=== PATIENT | female | born 1975 | race Caucasian/White ===

== ENCOUNTER → 2023-10-12 13:07 | Outpatient (REF) | payer OTHER, SELFPAY | LOC: RAD 13:07 | PROVIDERS: ATTENDING PHYSICIAN Nurse Practitioner Adult Health; FAMILY PHYSICIAN Internal Medicine | DX: N84.0 Polyp of corpus uteri (principal) | CPT/HCPCS: 76830; 76856 ==

== ENCOUNTER 2024-11-21 19:17 | Emergency (ER) | payer OTHER, SELFPAY ==
[2024-11-21 19:31] VITALS: BP 163/107
[2024-11-21 20:15] LABS: ALT (SGPT) 50 U/L (0-35); AST (SGOT) 31 U/L (14-36); Albumin 4.9 g/dl (3.5-5.0); Alkaline Phosphatase 54 U/L (38-126); Blood Urea Nitrogen 21 mg/dl (7-17); Calcium 9.1 mg/dl (8.4-10.2); Carbon Dioxide 22 mmol/L (22-30); Chloride 108 mmol/L (98-107); Glucose 127 mg/dl (70-99); Potassium 4.5 mmol/L (3.5-5.1); Sodium 139 mmol/L (135-145); Total Protein 7.7 g/dl (6.3-8.2); eGFR > 60.00
[2024-11-21 20:26] LABS: Troponin I < 0.012 ng/ml
[2024-11-21 21:55] VITALS: BP 167/100
[2024-11-21 22:00] VITALS: BP 158/94
[2024-11-21 22:53] LABS: Hematocrit 34.9 % (37.0-47.0); Hemoglobin 12.3 g/dL (12.0-16.0); Mean Corp Hgb Conc. 35.2 g/dL (33.0-37.0); Mean Corpuscular Volume 87.0 fL (81.0-99.0); Nucleated Red Blood Cells % 0 %; Platelet Count 272 10^3/uL (130-400); Red Cell Dist. Width 11.6 % (11.5-14.5)
[2024-11-21 23:00] VITALS: BP 180/89
[2024-11-21] MEDS: NSS 1000 IV (23:31)
--- NOTE | 2024-11-21 23:39 | ED.GENMED ---
History of Present Illness
General
Chief Complaint: Chest Pain
Source: patient
Exam Limitations: none
Time Seen by Provider: 11/21/24 23:02
Nursing documentation reviewed up to this point in time: agreed with
History of Present Illness
History of Present Illness:
Patient is a 48-year-old female who presents to the emergency department for evaluation of chest pain. Patient states she was at work around 3 PM when she noticed a gradual onset pain in her left lower chest. Pain was constant for a few hours and
associated with lightheadedness and mild shortness of breath. When she arrived home from work that she noticed that she was hypertensive. She contacted her primary care provider who recommended evaluation in the emergency department.
Patient denies any radiation of pain into her back. She denies any clear pleuritic or exertional component to pain. Patient denies any numbness/tingling in extremities or weakness. No visual changes or severe headache.
Patient states she did recently travel back from [place] a few weeks ago however denies any pain or swelling in her lower extremities.
She has no personal or known family history of blood clots or clotting disorders. She does not take any exogenous hormones.
Past History
Past History
ED Past Medical History: HTN and Psychiatric (Anxiety, )
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
Social History
Tobacco: Non-smoker
Alcohol: Occasional
Drug: None
Personal:
Living: with family
Employment: Employed
Family History
Family History: Other (Noncontributory)
Review of Systems
Review of Systems
Allergies reviewed?: Yes
All Other Systems: ROS reviewed and negative except as documented in HPI and ROS
Phy Exam
Physical Exam
Physical Exam:
Vitals: Hypertensive and tachycardic on arrival although somewhat improved by my assessment. Afebrile
General: Patient is well appearing, no acute distress
Skin: Warm and dry, no rashes or lesions
Head: Normocephalic, atraumatic
Eyes: Sclera nonicteric.
Throat: Protecting airway
Neck: Normal ROM, no cervical spine tenderness, no meningismus
Cardiac: Regular rate and rhythm, no murmurs. No reproducible chest wall tenderness. 2+ palpable radial pulses bilaterally
Pulm: Normal respiratory effort, no wheezes, rales, rhonchi heard on exam
Abdomen: No abdominal tenderness.
Extremities: No evidence of cyanosis or edema. 2+ DP pulses bilaterally
Neuro: AAOx3. Grossly intact.
Psychiatric: Normal affect.
Scores
Heart Score for Chest Pain Patients
STEMI patient?: No
History: Slightly or Non-Suspicious
ECG: Normal
Age: >45 - <65 years
Risk Factors: 1 or 2 Risk Factors
Troponin: </= Normal Limit
Heart Score for Chest Pain Patients: 2
Heart Score Risk: 2.5% MACE over next 6 weeks
Course
Orders/Labs/Results
Orders:
Orders
11/21/24 19:18
Electrocardiogram (*1) Urgent
Reason for Study: Chest Pain
EKG- Treatment ONCE
11/21/24 19:45
Comprehensive Metabolic Panel Urgent
NT-proBNP Urgent
Troponin I Urgent
11/21/24 22:46
Complete Blood Count/With Diff Urgent
11/21/24 23:14
0.9% Sodium Chloride 1000 ml [Nss] 1,000 ml IV BOLUS
11/21/24 23:15
Electrocardiogram (*1) Urgent
Reason for Study: Chest Pain
EKG- Treatment ONCE
11/21/24 23:26
COVID-19 Antigen Urgent
Source: Nasal Swab
D-Dimer Urgent
Troponin I Urgent
11/22/24 00:13
CR Chest - 2 Views Urgent
Comment:
Reason For Exam: Left sided chest pain
Abnormal Lab Results
11/21/24 11/21/24
19:45 22:46
RBC 4.01 L 10^6/uL
(4.20-5.40)
Hct 34.9 L %
(37.0-47.0)
Chloride 108 H mmol/L
(98-107)
BUN 21 H mg/dl
(7-17)
Glucose 127 H mg/dl
(70-99)
ALT 50 H U/L
(0-35)
11/21/24 22:46
11/21/24 19:45
Vital Signs
Initial and Last Documented VS:
Initial Vital Signs
Temp Pulse Resp BP Pulse Ox
98.7 F 114 20 163/107 99
11/21/24 19:31 11/21/24 19:31 11/21/24 19:31 11/21/24 19:31 11/21/24 19:31
Last Documented Vital Signs
Temp Pulse Resp BP Pulse Ox
98.7 F 80 12 160/90 97
11/21/24 19:31 11/22/24 00:19 11/22/24 00:19 11/22/24 00:34 11/22/24 00:19
MDM/Problems Addressed
Differential Diagnosis Includes:
Not limited to: Muscle strain, costochondritis, GERD, acute coronary syndrome, pericarditis, pulmonary embolism, etc.
MDM/Problems Addressed:
48-year-old female presenting with left-sided chest discomfort associated with very mild shortness of breath earlier today that has since resolved. Also reports lightheadedness. No clear exertional or pleuritic component to symptoms. Patient
initially tachycardic and hypertensive on arrival although these did improve by my assessment. On exam�patient well-appearing, in no apparent distress. She is afebrile. Heart regular rate and rhythm, lungs clear bilaterally. No reproducible
chest wall tenderness. No lower extremity edema or clinical evidence of DVT. Basic labs sent prior to my evaluation which revealed no clinically significant abnormalities. Initial troponin undetectable. Patient has no pulmonary embolism risk
factors. However�given tachycardia on arrival and very mild shortness of breath�will check D-dimer. Will plan to trend serial troponins, give IV fluids and reassess. Asymptomatic at this time.
Update: D-dimer negative. Repeat troponin undetectable with nonischemic EKG. Chest x-ray reveals no acute abnormality. Vital signs improved while in the emergency department. She remains well and comfortable appearing in no distress. Given
resolution of symptoms, nonischemic EKG, and negative serial troponins x 2�very low acute cardiac process. Feel stable for discharge home with continued monitoring of symptoms and primary care follow-up. Patient comfortable with plan.
Chronic conditions affecting care:
N/A
Acute Exacerbation and/or Progression of Chronic Illness:
N/A
*Radiology
Radiology exam reviewed: preliminary read by ED provider (Chest x-ray reviewed by ne-no acute abnormality)
*Pulse Oximetry
SaO2: 100
Oxygen Mode of Delivery: Room air
Patient hypoxic: no
*EKG
Interpreted by ED Provider?: Yes
EKG Intrepretation Date: 11/22/24
Interpretation: normal
Comparison EKG: no changes
Heart Rate: 87
Rate: normal
Rhythm: sinus
Lewis: normal axis
Interval: normal interval
QRS Pattern: normal QRS
Ischemia: no ischemia
*Compliance Auditor Interpretation
Rate: normal
Interpretation: normal
Heart Rate: 80
Rhythm: sinus
*Critical Care Note
Total Time (30-74mins, 75-104mins- exclusive of procedures): Not Applicable
ED Attending Note
-
Portions of this chart may have been created with voice recognition software.� Occasional wrong word or��sound alike� substitutions may have occurred due to the inherent limitations of voice recognition software.
Discharge Plan
Departure
Patient Disposition: Home (Routine Discharge)
Date of Disposition: 11/22/24
Time of Disposition: 00:51
Patient with high blood pressure during this ER visit?: Yes
Discharge Problem:
Chest pain
Instructions: Chest pain - Discharge instructions, BLOOD PRESSURE
Prescriptions:
No Action
alprazolam 0.5 MG tablet
0.5 mg PO Q6HPRN PRN (Reason: anxiety)
pantoprazole 40 mg tablet,delayed release (DR/EC)
40 mg PO DAILY Qty: 20 0RF
Referrals:
Flako Genao MD [Family Provider, Internal Medicine] - Follow up in 5-7 days
Activity Restrictions/Additional Instructions:
RETURN TO THE EMERGENCY DEPARTMENT WITH ANY CHEST PAIN, SHORTNESS OF BREATH, PERSISTENT LIGHTHEADEDNESS OR DIZZINESS, SEVERE BACK PAIN, HIGH FEVERS OR PRODUCTIVE COUGH, WORSENING OF CURRENT SYMPTOMS, OR ANY OTHER CONCERNS
- As discussed�your workup in the emergency department showed no acute abnormalities.
- Please be sure to stay well-hydrated. Take all medications as prescribed.
- Follow-up with your primary care for further evaluation/management to ensure that your symptoms are improving.
Monitor your symptoms closely and return to the emergency department with any acute worsening/new symptoms or any other concerns
Interventions
Interventions:
*Risk Screen - Suicide Last Done: 11/21/24 19:31
*General Assessment Last Done: 11/21/24 22:27
*Neglect/Abuse Screening Last Done: 11/21/24 19:31
*ED- Fall Risk Assessment Last Done: 11/21/24 22:27
*ED COVID-19 Vaccine History Last Done: 11/21/24 22:27
ED- Cardiac Assessment Last Done: 11/21/24 22:27
Discharge Date and Time
Print Language: HEBREW
[2024-11-21 23:43] LABS: COVID-19 Antigen Negative (Negative)
[2024-11-21 23:45] LABS: D-Dimer 0.29 ug/mlFEU (0.00-0.50)
[2024-11-22] VITALS: BP 159/96
[2024-11-22 00:12] LABS: Troponin I < 0.012 ng/ml
[2024-11-22 00:34] VITALS: BP 160/90
== END 2024-11-22 01:14 | disposition home or self-care (01) ==
LOC: EMR 19:17
PROVIDERS: Emergency Medicine; Physician Assistant; EMERGENCY PHYSICIAN Student in an Organized Health Care Education/Training Program; FAMILY PHYSICIAN Internal Medicine
DX: R07.89 Other chest pain (principal); I10 Essential (primary) hypertension
CPT/HCPCS: 99283; 71046; 80053; 83880; 84484; 85025; 85379; 87811; 93005

== ENCOUNTER 2025-01-17 22:21 | Emergency (ER) | payer OTHER, SELFPAY ==
[2025-01-17 22:24] VITALS: BP 162/104
--- NOTE | 2025-01-18 00:10 | ED.GENMED ---
History of Present Illness
<Arnol Landaverde MD, Resident - Last Filed: 01/18/25 00:44>
General
Chief Complaint: Skin Surface Trauma
Source: patient
Exam Limitations: none
Time Seen by Provider: 01/17/25 23:51
History of Present Illness
History of Present Illness:
Patient is a 49-year-old female who presents to the emergency department with left ankle pain following a left ankle wound after falling off her treadmill a week ago. After the fall she immediately went to urgent care and was given cephalexin.
They recommended that she receive her tetanus shot but she declined at that time. She has been adherent to taking the antibiotics but unfortunately the pain in her left lower leg has gotten worse. The redness is growing around the wound and
patient's pain is now radiating up her leg to below the knee. Currently she cannot put any pressure on the foot without experiencing pain. She has been using her to help her walk.
Past History
<Arnol Landaverde MD, Resident - Last Filed: 01/18/25 00:44>
Past History
ED Past Medical History: HTN and Psychiatric (Anxiety, )
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
Social History
Tobacco: Non-smoker
Alcohol: Occasional
Drug: None
Personal:
Living: with family
Employment: Employed
Family History
Family History: Other (Noncontributory)
Phy Exam
<Arnol Landaverde MD, Resident - Last Filed: 01/18/25 00:44>
General Physical Exam
General Presentation: well appearing and no apparent distress
General age: appears stated age
General Skin: warm and dry
General Habitus: normal
General Mental: alert
General Hydration: appears well hydrated
Cardiovascular Exam
Cardiovascular Exam: regular rate/rhythm, no edema, no gallop, no JVD and no murmur
Pulmonary Exam
Pulmonary Exam: lungs clear, no respiratory distress, no rales, chest non tender, no crackles, no rhonchi, no stridor, no wheezing and no cough
Gastrointestinal Exam
Gastrointestinal Exam: normal bowel sounds, non tender, soft, no organomegaly, no pulsatile mass and non distended
Skin Exam
Skin Exam: other ( Erythema, swelling, and granulation tissue covering over left medial malleolus.)
Course
<Arnol Landaverde MD, Resident - Last Filed: 01/18/25 00:44>
Orders/Labs/Results
Orders:
Orders
01/18/25 00:34
Doxycycline [Vibramycin] 100 mg PO NOW STA
Ketorolac [Toradol] 15 mg IM NOW STA
Tetanus/Diphth/Acelpertussis [Adacel] 0.5 ml IM .ONCE ONE
Vital Signs
Initial and Last Documented VS:
Initial Vital Signs
Temp Pulse Resp BP Pulse Ox
98.3 F 116 16 162/104 99
01/17/25 22:24 01/17/25 22:24 01/17/25 22:24 01/17/25 22:24 01/17/25 22:24
Last Documented Vital Signs
Temp Pulse Resp BP Pulse Ox
98.3 F 116 16 162/104 99
01/17/25 22:24 01/17/25 22:24 01/17/25 22:24 01/17/25 22:24 01/18/25 00:24
<Sara Mayorga DO - Last Filed: 01/18/25 00:59>
Orders/Labs/Results
Orders:
Orders
01/18/25 00:34
Doxycycline [Vibramycin] 100 mg PO NOW STA
Ketorolac [Toradol] 15 mg IM NOW STA
Tetanus/Diphth/Acelpertussis [Adacel] 0.5 ml IM .ONCE ONE
Vital Signs
Initial and Last Documented VS:
Initial Vital Signs
Temp Pulse Resp BP Pulse Ox
98.3 F 116 16 162/104 99
01/17/25 22:24 01/17/25 22:24 01/17/25 22:24 01/17/25 22:24 01/17/25 22:24
Last Documented Vital Signs
Temp Pulse Resp BP Pulse Ox
98.3 F 116 16 162/104 99
01/17/25 22:24 01/17/25 22:24 01/17/25 22:24 01/17/25 22:24 01/18/25 00:24
<Arnol Landaverde MD, Resident - Last Filed: 01/18/25 00:44>
*Pulse Oximetry
SaO2: 99
Oxygen Mode of Delivery: Room air
Patient hypoxic: no
*Critical Care Note
Total Time (30-74mins, 75-104mins- exclusive of procedures): 60
<Arnol Landaverde MD, Resident - Last Filed: 01/18/25 00:44>
Update Note
Update Note:
Problem List:
Skin wound over the left medial malleolus
swelling of the left ankle
Plan:
doxycycline for better organism coverage
ketorolac for analgesia
Tdap given
Differential Diagnoses:
abrasion wound to the skin
ankle sprain
Radiology:
- ankle x-ray conducted on 01/14/2025 in the outpatient setting: no acute fracture or dislocation. Alignment ankle mortise is maintained. Soft tissue swelling around the ankle.
EKG: not applicable
Labs: not applicable
Updates:
left ankle appears to be marginally swollen when compared to the right. Possible cellulitis process occurring.
Switched patient to doxycycline for better coverage
15 mg ketolorac IM given for analgesia
patient given Tdap due to immunization and risk of tetany due to wound
ED Attending Note
<Arnol Landaverde MD, Resident - Last Filed: 01/18/25 00:44>
-
Portions of this chart may have been created with voice recognition software.� Occasional wrong word or��sound alike� substitutions may have occurred due to the inherent limitations of voice recognition software.
<Sara Mayorga DO - Last Filed: 01/18/25 00:59>
ED Attending Note
Patient seen and examined by attending physician: Yes
I performed the substantive portion of visit, reviewed & personally made and approve the management plan that is documented in note by myself or JACEK.: Yes
I performed a history and physical exam of patient and discussed management with resident, I reviewed resident's note and agree with documented findings and plan of care.: Yes
ED Attending Note:
49-year-old female presenting to the emergency department for reassessment of her left ankle. Patient reports about a week ago she fell off of a treadmill and twisted her ankle with subsequent wound. A few days after the initial incident, went to
urgent care, had an x-ray, without evidence of fracture. She was started on Keflex for concern of possible skin infection. She notes persistent pain to the medial ankle with wound, as well as some swelling and persistent redness to the skin.
Denies numbness or tingling. Tetanus status unknown. Denies fever. Vital signs are significant for high blood pressure.
On exam patient is resting comfortably, no acute distress or discomfort. On examination of the ankle, at the medial aspect there is some swelling with bruising. There is a circumferential area of granulation tissue from prior wound with mild
surrounding erythema. No fluctuance or active drainage. Range of motion grossly intact. No neurovascular compromise. Generalized tenderness to the area. Distal sensation and pulses intact. Suspect ankle sprain with concomitant mild cellulitis
around wound. Patient notes that she felt that the redness worsened after using some bacitracin ointment. Possible skin irritation from the ointment. Advised that she stop using this medication. Versus also consideration, patient only on Keflex.
Will change her antibiotic to doxycycline. Wound was demarcated with a skin pen. Patient provided Boni bandages for her ankle. Otherwise feel stable for discharge with continued outpatient supportive therapy and antibiotic therapy. Return
precautions discussed
Discharge Plan
Departure
Patient Disposition: Home (Routine Discharge)
Date of Disposition: 01/18/25
Time of Disposition: 00:39
Patient with high blood pressure during this ER visit?: Yes
Discharge Problem:
Abrasion hip/leg, Ankle sprain
Prescriptions:
New
doxycycline hyclate 100 mg capsule
100 mg PO BID Qty: 14 0RF
No Action
alprazolam 0.5 MG tablet
0.5 mg PO Q6HPRN PRN (Reason: anxiety)
pantoprazole 40 mg tablet,delayed release (DR/EC)
40 mg PO DAILY Qty: 20 0RF
Stand Alone Forms: Return to Work
Activity Restrictions/Additional Instructions:
You were seen in the emergency department for ankle pain
You were found to have an ankle sprain with possible skin infection. You are started on doxycycline. Please stop taking the cephalexin.
Please follow-up closely with your primary care physician.
Return to the emergency department for any worsening of your symptoms, or any development of chest pain, difficulty breathing, abdominal pain with persistent vomiting and inability to tolerate food or liquid by mouth (concern for dehydration),
weakness, headache or confusion, fever greater than 100.4, or any additional symptoms that are concerning to you.
Thank you for choosing [facility].
Interventions
Interventions:
*Risk Screen - Suicide Last Done: 01/17/25 22:24
*General Assessment Last Done: 01/17/25 22:24
*Neglect/Abuse Screening Last Done: 01/17/25 22:24
*ED- Fall Risk Assessment Last Done: 01/17/25 22:24
*ED COVID-19 Vaccine History Last Done: 01/17/25 22:24
Discharge Date and Time
Print Language: HEBREW
[2025-01-18] MEDS: VIBRAMYCIN 100 MG PO (00:45)
[2025-01-18] MEDS: TORADOL 15 MG IM (00:45)
[2025-01-18] MEDS: ADACEL 0.5 ML IM (00:46)
== END 2025-01-18 01:11 | disposition home or self-care (01) ==
LOC: EMR 22:21
PROVIDERS: EMERGENCY PHYSICIAN Student in an Organized Health Care Education/Training Program; FAMILY PHYSICIAN Internal Medicine
DX: S93.402A Sprain of unspecified ligament of left ankle, initial encounter (principal); S70.212A Abrasion, left hip, initial encounter; W31.9XXA Contact with unspecified machinery, initial encounter; I10 Essential (primary) hypertension; Z23 Encounter for immunization
CPT/HCPCS: 99284; 96372; 90471; 90715